=== PATIENT | male | born 1985 | race African-American/Black ===

== ENCOUNTER 2016-08-23 04:30 | Emergency (ER) | payer MEDICAID ==
[2016-08-23] MEDS ORDERED: IBUPROFEN 600 MG TABLET PO STA (05:26)
[2016-08-23] MEDS ORDERED: IBUPROFEN 600 MG TABLET PO ONE (05:31)
[2016-08-23] MEDS ORDERED: CIPROFLOXACIN 250 MG TABLET PO STA (08:51)
== END 2016-08-23 09:04 | disposition home or self-care (01) ==
DX: R10.30 Lower abdominal pain, unspecified (principal); F17.200 Nicotine dependence, unspecified, uncomplicated
CPT/HCPCS: 74176; 81001; 87077; 87086; 87181; 99283; 99284; A9270

== ENCOUNTER 2017-06-01 09:18 | Emergency (ER) | payer MEDICAID ==
[2017-06-01 09:26] VITALS: BP 174/101
[2017-06-01] MEDS ORDERED: IPRATROPIUM/ALBUTEROL 3 ML NEB INH STA (09:44)
[2017-06-01] MEDS ORDERED: DEXAMETHASONE 10 MG/ML VIAL PO STA (09:44)
[2017-06-01] MEDS ORDERED: BENZONATATE 100 MG CAPSULE PO STA (09:45)
--- NOTE | 2017-06-01 09:47 | ED Physician Documentation ---
PD HPI URI - Stated complaint Stated Complaint: COUGH - Chief complaint Chief Complaint: Resp - History obtained from History obtained from: Patient, Family - History of Present Illness Timing - onset: How many days ago (5) Timing duration: Days (5) Timing details: Gradual onset, Still present Associated symptoms: Nasal congestion, Productive cough, Chest pain, Dyspnea Improves by: Rest, Medication Worsened by: Activity Similar symptoms before: Diagnosis (bronchitis) Recently seen: Not recently seen - Additional information Additional information: 32-year-old male with a remote history of asthma has developed a cough and congestion. He has had coughing paroxysms so hard that he takes his breath away and he has central chest pain associated with these coughing paroxysms. He does have some sensation of difficulty getting a full deep breath. He is coughing up white phlegm. He does not have sinus tenderness or ear pain or sore throat. He has missed work and has had reduced energy level. Review of Systems Constitutional: reports: Myalgias, Fatigue. denies: Fever Eyes: denies: Decreased vision Ears: denies: Ear pain Nose: reports: Congestion. denies: Rhinorrhea / runny nose Throat: denies: Sore throat Cardiac: reports: Chest pain / pressure. denies: Palpitations Respiratory: reports: Dyspnea, Cough, Wheezing GI: denies: Abdominal Pain, Nausea, Vomiting : denies: Dysuria Skin: denies: Rash Musculoskeletal: denies: Neck pain, Back pain Neurologic: denies: Generalized weakness, Focal weakness, Numbness PD PAST MEDICAL HISTORY - Past Medical History Past Medical History: No - Past Surgical History Past Surgical History: No - Present Medications Home Medications: Ambulatory Orders Medication Instructions Recorded Confirmed Benzonatate [Tessalon] 100 - 200 mg PO TID PRN #20 capsule 06/01/17 - Allergies Allergies/Adverse Reactions: Allergies Allergy/AdvReac Type Severity Reaction Status Date / Time No Known Drug Allergies Allergy Verified 06/01/17 09:26 - Social History Does the pt smoke?: Yes Smoking Status: Current every day smoker Does the pt drink ETOH?: No Does the pt have substance abuse?: No - Immunizations Immunizations are current?: Yes - POLST Patient has POLST: No PD ED PE NORMAL - Vitals Vital signs reviewed: Yes (Hypertensive) - General General: No acute distress, Well developed/nourished - HEENT HEENT: Atraumatic, PERRL, EOMI, Ears normal, Moist mucous membranes, Pharynx benign, Dentition benign - Neck Neck: Supple, no meningeal sign, No bony TTP - Cardiac Cardiac: RRR, No murmur - Respiratory Respiratory: No respiratory distress, Other (Rhonchi in the right midlung field diminished breath sounds bilaterally) - Abdomen Abdomen: Soft, Non tender - Back Back: No CVA TTP, No spinal TTP - Derm Derm: Normal color, Warm and dry, No rash - Extremities Extremities: No deformity, No edema - Neuro Neuro: Alert and oriented X 3, No motor deficit, No sensory deficit, Normal speech Eye Opening: Spontaneous Motor: Obeys Commands Verbal: Oriented GCS Score: 15 - Psych Psych: Normal mood, Normal affect Results - Vitals Vitals: Vital Signs - 24 hr 06/01/17 06/01/17 09:21 09:57 Temperature 36 C L Heart Rate 73 68 Respiratory 16 16 Rate Blood Pressure 174/101 H O2 Saturation 98 Oxygen O2 Source Room air - Rads (name of study) 2 view chest Radiology: Prelim report reviewed (Impression: Normal two-view chest radiography.), EMP read indepedently, See rad report PD MEDICAL DECISION MAKING - ED course Complexity details: reviewed results, re-evaluated patient, considered differential, d/w patient, d/w family ED course: 32-year-old male with a two-week long history of cough is producing white phlegm he does not have sinus tenderness or otitis on examination in his chest x -ray is without evidence of infiltrate. He did receive a DuoNeb treatment in the emergency department without much improvement. He is treated here today with dexamethasone 10 mg orally and Tessalon Perle. We will take him out of work for 3 days and provide Tessalon Perles for cough suppressant. We have diagnosed bronchitis Departure - Departure Disposition: 01 Home, Self Care Clinical Impression: Bronchitis Condition: Stable Instructions: ED Upper Resp Infec No Abx Tx Follow-Up: Your, doctor [Other] Prescriptions: Benzonatate [Tessalon] 100 - 200 mg PO TID PRN #20 capsule PRN Reason: Cough Comments: Today in the Emergency Department your blood pressure was elevated. This can happen from the stress of the visit itself, from a current illness or circumstance or from uncontrolled hypertension. If you take blood pressure medications take your usual mediations, have your blood pressure re-checked in an appropriate setting and follow up any elevation with your primary care doctor. Forms: Activity restrictions
[2017-06-01] MEDS ORDERED: IPRATROPIUM/ALBUTEROL 3 ML NEB INH ONE (09:54)
[2017-06-01] MEDS ORDERED: DEXAMETHASONE 10 MG/ML VIAL ONE (10:00)
[2017-06-01] MEDS ORDERED: BENZONATATE 100 MG CAPSULE PO ONE (10:00)
--- NOTE | 2017-06-01 10:40 | XRAY Preliminary Report ---
Exam: XR CHEST 2 VIEW PA/LAT IMPRESSION: Normal 2-view chest radiography. [facility] SITE ID: [id number]
--- NOTE | 2017-06-01 10:42 | XRAY Report ---
EXAM: CHEST RADIOGRAPHY EXAM DATE: 06/01/2017 09:56 AM. CLINICAL HISTORY: Cough soa central pain . COMPARISON: None. TECHNIQUE: 2 views. FINDINGS: Lungs/Pleura: No focal opacities evident. No pleural effusion. No pneumothorax. Normal volumes. Mediastinum: Heart and mediastinal contours are unremarkable. Other: None. IMPRESSION: Normal 2-view chest radiography. [facility] Referring Provider Line: [phone] SITE ID: [id number]
== END 2017-06-01 11:06 | disposition home or self-care (01) ==
LOC: ED 09:18
DX: J40 Bronchitis, not specified as acute or chronic (principal); F17.200 Nicotine dependence, unspecified, uncomplicated; R03.0 Elevated blood-pressure reading, without diagnosis of hypertension
CPT/HCPCS: 71020; 94640; 99283; A9270; J7620